=== PATIENT | female | born 1990 | race Caucasian/White ===

== ENCOUNTER 2020-10-16 16:25 | Emergency (ER) | payer OTHER ==
[~2020-10-16] VITALS: Ht 165.1 cm; Wt 29.6 kg
[2020-10-16 16:43] VITALS: BP 93/63
[2020-10-16] MEDS ORDERED: HYDR-3965 PO (19:19)
== END 2020-10-16 20:05 | disposition home or self-care (01) ==
LOC: ER 16:27
DX: M79.641 Pain in right hand (principal)
CPT/HCPCS: 73130; 99283

== ENCOUNTER 2020-12-12 18:06 | Emergency (ER) | payer OTHER ==
[~2020-12-12] VITALS: Ht 165.1 cm; Wt 54.5 kg
[2020-12-12 18:18] VITALS: BP 97/59
== END 2020-12-12 20:10 | disposition home or self-care (01) ==
LOC: ER 18:07
DX: M25.521 Pain in right elbow (principal); Q79.60 Ehlers-Danlos syndrome, unspecified; Z88.6 Allergy status to analgesic agent
CPT/HCPCS: 73080; 99283

== ENCOUNTER 2022-03-06 10:14 | Emergency (ER) | payer OTHER, MEDICARE ==
[~2022-03-06] VITALS: Ht 165.1 cm; Wt 60.0 kg
[2022-03-06 10:18] VITALS: BP 120/81
== END 2022-03-06 11:59 | disposition home or self-care (01) ==
LOC: ER 10:15
DX: J06.9 Acute upper respiratory infection, unspecified (principal); R05.9 Cough, unspecified; G89.29 Other chronic pain; M54.50 Low back pain, unspecified; Z88.6 Allergy status to analgesic agent
CPT/HCPCS: 99282